=== PATIENT | female | born 1935 | race Caucasian/White ===

== ENCOUNTER 2017-03-07 07:51 | Day surgery (SDC) | payer MEDICARE, OTHER ==
[2017-03-07 08:41] VITALS: BMI 25.4
[2017-03-07 08:52] VITALS: TEMP 96.9
[2017-03-07] MEDS ORDERED: Propofol 10 mg/ml Inj (20 ML) ONE (10:28)
[2017-03-07] MEDS ORDERED: Midazolam 2 MG/2 ML VIAL ONE (10:28)
--- NOTE | 2017-03-07 10:34 | CP.SDSHP ---
Same Day Surgery H & P - History Proposed Procedure: egd/colonoscopy Pre-Op Diagnosis: KEENAN, abdominal pain, Abnormal CT of Gi tract - Previous Medical/Surgical History Cardiac: Hypertension, ASHD/CAD Misc: Anemia - Allergies Allergies: Allergies No Known Allergies Allergy (Verified 03/07/17 08:34) - Current Medications Current Medications: nl - Physical Exam Vital Signs: Vital Signs 03/07/17 08:40 Temperature 96.9 F L Pulse Rate 80 Respiratory 20 Rate Blood Pressure 158/62 H O2 Sat by Pulse 97 Oximetry Mental Status: Alert & Oriented x3 Neuro: WNL Heart: WNL Lungs: WNL GI: WNL - {Optional Preform as Required} Abdomen: WNL - Impression Impression: KEENAN, abdominal pain, abnormal ct of gi tract Pt. Evaluated Today:Candidate for Anesthesia & Procedure: Yes - Date & Time Date: 03/07/17 Time: 10:34 Short Stay Discharge - Short Stay Discharge Admitting Diagnosis/Reason for Visit: IRON DEFICIENCY ANEMIA, UNSPECIFIED, UNSPECIFIED AB Disposition: HOME/ ROUTINE Referrals: Mansoor Day MD [Primary Care Provider] -
[2017-03-07] MEDS ORDERED: Labetalol 25mg/5ml Syringe IV ONE (12:10)
[2017-03-07] MEDS ORDERED: Labetalol 25mg/5ml Syringe ONE (12:14)
[2017-03-07 12:19] VITALS: O2SAT 100
[2017-03-07 14:10] VITALS: BP 174/73; PULSE 84; RESP 19
== END 2017-03-07 13:45 | disposition home or self-care (01) ==
LOC: C.ENDO 07:51
PROVIDERS: ATTEND Internal Medicine
DX: D50.9 Iron deficiency anemia, unspecified (principal); R10.9 Unspecified abdominal pain; K59.09 Other constipation; R93.3 Abnormal findings on diagnostic imaging of other parts of digestive tract; D17.5 Benign lipomatous neoplasm of intra-abdominal organs; K22.6 Gastro-esophageal laceration-hemorrhage syndrome
CPT/HCPCS: 43255; 45380; 82948; 88305; J0171; J2250; J2704; J3010